=== PATIENT | female | born 1960 | race Caucasian/White ===

== ENCOUNTER 2021-02-15 03:57 | Emergency (ER) | payer BC ==
[2021-02-15 04:26] LABS: HEMOGLOBIN 13.6 gm/dl (12.3-15.3); RED BLOOD COUNT 4.61 M/UL (4.00-5.10); WHITE BLOOD COUNT 9.1 K/UL (4.5-11.0)
[2021-02-15 04:44] LABS: BUN/CREATININE RATIO 24 (0-10)
[2021-02-15] MEDS ORDERED: NAPROSYN EC 50500 MG GT (06:36)
== END 2021-02-15 07:21 | disposition home or self-care (01) ==
LOC: ER1 03:57
PROVIDERS: Internal Medicine
DX: R07.9 Chest pain, unspecified (principal); R19.7 Diarrhea, unspecified
CPT/HCPCS: 71046; 80053; 82550; 82553; 84484; 85025; 93005; 99285

== ENCOUNTER 2021-07-05 17:35 | Emergency (ER) | payer BC ==
[~2021-07-05 17:35] MED LIST: NAPROSYN EC 50500 MG GT
== END 2021-07-05 19:11 | disposition left against medical advice (07) ==
LOC: ER1 17:35
DX: Z53.21 Procedure and treatment not carried out due to patient leaving prior to being seen by health care provider (principal)

== ENCOUNTER → 2021-07-15 | Outpatient (CLI) | payer BC | LOC: KOH-I 15:07 | DX: S00.93XA Contusion of unspecified part of head, initial encounter (principal) | CPT/HCPCS: 70551 ==

== ENCOUNTER 2021-08-08 04:01 | Emergency (ER) | payer BC ==
[2021-08-08 04:50] LABS: HEMOGLOBIN 14.2 gm/dl (12.3-15.3); RED BLOOD COUNT 4.75 M/UL (4.00-5.10)
[2021-08-08 05:21] LABS: BUN/CREATININE RATIO 28 (0-10)
== END 2021-08-08 07:00 | disposition home or self-care (01) ==
LOC: ER1 04:01
PROVIDERS: Family Medicine
DX: S01.01XA Laceration without foreign body of scalp, initial encounter (principal); S16.1XXA Strain of muscle, fascia and tendon at neck level, initial encounter; E86.0 Dehydration; E78.5 Hyperlipidemia, unspecified; I10 Essential (primary) hypertension; Z79.899 Other long term (current) drug therapy; W01.0XXA Fall on same level from slipping, tripping and stumbling without subsequent striking against object, initial encounter; Y92.009 Unspecified place in unspecified non-institutional (private) residence as the place of occurrence of the external cause
CPT/HCPCS: 70450; 72125; 80053; 81001; 82550; 82553; 82962; 83874; 84484; 85025; 93005; 94760; 99284

== ENCOUNTER 2021-08-20 02:16 | Emergency (ER) | payer BC ==
[2021-08-20 04:10] LABS: HEMOGLOBIN 13.5 gm/dl (12.3-15.3); RED BLOOD COUNT 4.47 M/UL (4.00-5.10); WHITE BLOOD COUNT 5.7 K/UL (4.5-11.0)
[2021-08-20 04:21] LABS: BUN/CREATININE RATIO 17 (0-10)
[2021-08-20] MEDS ORDERED: IBUPROFEN600 MG PO (07:38)
== END 2021-08-20 08:30 | disposition home or self-care (01) ==
LOC: ER1 02:16
DX: R07.89 Other chest pain (principal); R51.9 Headache, unspecified; F41.9 Anxiety disorder, unspecified; E78.5 Hyperlipidemia, unspecified; I10 Essential (primary) hypertension
CPT/HCPCS: 70450; 71045; 80053; 82550; 82553; 83874; 84484; 85025; 93005; 99285; Q0177

== ENCOUNTER 2021-09-02 04:07 | Observation (INO) | payer BC ==
[~2021-09-02] VITALS: Ht 172.7 cm; Wt 64.9 kg
[~2021-09-02 04:07] MED LIST changes: +IBUPROFEN600 MG PO
[2021-09-02 04:58] LABS: RED BLOOD COUNT 4.68 M/UL (4.00-5.10); WHITE BLOOD COUNT 5.6 K/UL (4.5-11.0)
[2021-09-02 05:20] LABS: BUN/CREATININE RATIO 21 (0-10)
[2021-09-02] MEDS ORDERED: ALPRAZOLAM0.5 MG PO (09:23)
[2021-09-02] MEDS ORDERED: PRAVASTATIN SOD20 MG PO (09:24)
[2021-09-02] MEDS ORDERED: IBU600 MG PO (09:24)
[2021-09-02] MEDS ORDERED: VITAMIN D250 MCG PO (09:25)
[2021-09-02] MEDS ORDERED: PROBIOTIC1 EAC1 PO (09:26)
[2021-09-02] MEDS ORDERED: VITAMIN B-1250 MCG PO (09:26)
[2021-09-03 04:25] LABS: BUN/CREATININE RATIO 21 (0-10)
[2021-09-03] MEDS ORDERED: MECLIZINE HCL25 MG PO (11:25)
[2021-09-03] MEDS ORDERED: HYDRALAZINE HCL25 MG PO (11:25)
== END 2021-09-03 15:12 | disposition home or self-care (01) ==
LOC: ER1 04:07 → CDU 08:47 → M/S 08:47
PROVIDERS: Physician Assistant; Physician Assistant Medical; ADMIT Internal Medicine
DX: R55 Syncope and collapse (principal); E78.5 Hyperlipidemia, unspecified; R00.1 Bradycardia, unspecified; F41.9 Anxiety disorder, unspecified; R03.0 Elevated blood-pressure reading, without diagnosis of hypertension; E87.6 Hypokalemia; Z20.822 Contact with and (suspected) exposure to COVID-19; I65.23 Occlusion and stenosis of bilateral carotid arteries; I07.1 Rheumatic tricuspid insufficiency
CPT/HCPCS: ECHO; 36415; 70450; 70551; 71045; 80048; 80053; 81001; 82550; 82553; 83874; 84439; 84443; 84484; 85025; 85379; 93005; 93270; 93306; 93880; 96372; 96374; 97162; 99285; G0378; J0360; J1650; Q9967; U0002

== ENCOUNTER → 2022-01-16 | Outpatient (CLI) | payer BC ==
[~2022-01-16] MED LIST changes: +ALPRAZOLAM0.5 MG PO; +HYDRALAZINE HCL25 MG PO; +IBU600 MG PO; +MECLIZINE HCL25 MG PO; +PRAVASTATIN SOD20 MG PO; +PROBIOTIC1 EAC1 PO; +VITAMIN B-1250 MCG PO; +VITAMIN D250 MCG PO
== END ==
LOC: CATH 09:04
DX: Z00.00 Encounter for general adult medical examination without abnormal findings (principal); F41.9 Anxiety disorder, unspecified; R55 Syncope and collapse; Z20.822 Contact with and (suspected) exposure to COVID-19